=== PATIENT | male | born 1995 | race Two or more races ===

== ENCOUNTER 2016-07-24 10:30 | Day surgery (SDC) | payer OTHER ==
[~2016-07-24 10:30] MED LIST: CEFAZOLIN SODIUM 1,000 MG VIAL ONE
[2016-07-24] MEDS ORDERED: LACTATED RINGERS 1,000 ML ONE ×2 (10:40→13:33)
[2016-07-24] MEDS ORDERED: IV START KIT ONE (10:41)
[2016-07-24] MEDS ORDERED: CEFAZOLIN SODIUM 2 GRAM PREMIX 100 ML IV PRN (10:45)
[2016-07-24] MEDS ORDERED: CEFAZOLIN SODIUM 2 GRAM DUPLEX 2 G in Premix (D5W) 50 ml 1 EACH IV PRN (10:48)
[2016-07-24] MEDS ORDERED: CEFAZOLIN SODIUM 2 GRAM PREMIX 100 ML IV ONE (10:48)
[2016-07-24] MEDS ORDERED: LACTATED RINGERS 1,000 ML IV SCH ×2 (10:48→15:45)
[2016-07-24] MEDS ORDERED: LIDOCAINE 1% 2 ML VIAL ID PRN (10:48)
[2016-07-24] MEDS ORDERED: MIDAZOLAM HCL 1 MG/ML 2ML VIAL ONE (13:22)
[2016-07-24] MEDS ORDERED: FENTANYL 5 ML ONE (13:22)
[2016-07-24] MEDS ORDERED: ROCURONIUM BROMIDE 10 MG/ML DOSE IV ONE (13:22)
[2016-07-24] MEDS ORDERED: CEFOTAXIME SODIUM 1,000 MG VIAL ONE (13:29)
[2016-07-24] MEDS ORDERED: BUPIVACAINE 0.5% W/EPI SDV 30 ML VIAL ONE (13:29)
[2016-07-24] MEDS ORDERED: SODIUM CHLORIDE 0.9% FLUSH 10 ML ONE (13:29)
[2016-07-24] MEDS ORDERED: KETAMINE HCL UD SYRINGE 100 MG/2 ML IV ONE (13:58)
[2016-07-24] MEDS ORDERED: METHYLENE BLUE 1% 1ML VIAL ONE (14:22)
[2016-07-24] MEDS ORDERED: ONDANSETRON 4 MG/2ML 2 ML VIAL ONE (14:30)
[2016-07-24] MEDS ORDERED: DEXAMETHASONE SOD PHOS 4 MG/1 ML VIAL ONE (14:30)
[2016-07-24] MEDS ORDERED: PROPOFOL 20 ML IV ONE ×2 (14:30→14:57)
[2016-07-24] MEDS ORDERED: MORPHINE SULFATE 10 MG/ML SYRINGE ONE (14:58)
[2016-07-24] MEDS ORDERED: PROMETHAZINE HCL 25 MG/ML VIAL IM PRN (15:39)
[2016-07-24] MEDS ORDERED: MORPHINE SULFATE 4 MG/ML SYRINGE IV PRN ×2 (15:39→16:23)
[2016-07-24] MEDS ORDERED: FENTANYL 100 MCG/2 ML VIAL IV PRN (15:39)
[2016-07-24] MEDS ORDERED: ONDANSETRON 4 MG/2ML 2 ML VIAL IV PRN ×2 (15:39→16:19)
[2016-07-24] MEDS ORDERED: KETOROLAC TROMETHAMINE 30 MG/ML 1 ML VIAL IV PRN (16:19)
[2016-07-24] MEDS ORDERED: MORPHINE SULFATE 2 MG/ML SYRINGE IV PRN (16:19)
[2016-07-24] MEDS ORDERED: OXYCODONE/ACETAMINOPHEN 5/325 MG TABLET PO PRN (16:19)
[2016-07-24] MEDS ORDERED: MORPHINE SULFATE 10 MG/ML SYRINGE IV PRN (16:23)
[2016-07-24] MEDS ORDERED: OXYCODONE/ACETAMINOPHEN 5/325 MG TABLET ONE (17:43)
--- NOTE | 2016-07-25 10:02 | OP ---
MEGAN HIGGINS [id number] DATE OF OPERATION: July 24, 2016 PREOPERATIVE DIAGNOSIS: Pilonidal cyst with chronic abscess. POSTOPERATIVE DIAGNOSIS: Pilonidal cyst with chronic abscess. PROCEDURE: COMPLEX EXCISION OF PILONIDAL CYST WITH CLEFT LIFT FLAP CLOSURE. SURGEON: Vitor Lopez M.D. VOICE AND DATA TECHNICIAN: Sonido Cox ANESTHESIA: Jonathan Madera C.R.N.A., general endotracheal. INDICATIONS: This is a 21-year-old male who has a chronic pilonidal cyst that has a long tract between the pits and a chronic abscess. He presents for elective resection. DESCRIPTION: With informed consent he was taken to the operating room where he was laid supine. General endotracheal anesthetic was administered. He was then placed in a prone position. Extensive hair over the buttocks was clipped. The buttocks were taped apart. The area was prepped and draped in a sterile fashion. Some Marcaine with epinephrine was infiltrated in the skin and subcutaneous tissues around the pilonidal cyst. We planned to lift the cleft and advance a flap from left to right. This was drawn on the skin. I injected the pits with some methylene blue and they connected to the chronic abscess more cephalad. An incision was made on the left side of the cystic lesion extending from below the pits to above the chronic abscess. I dissected down the presacral fascia making sure that I included any blue dye. I then made an incision extending out on the perianal skin on the patient's right buttock. I excised the skin and dermis over the medial right buttock until medially I then dissected down to the presacral fascia on the right side of the pits and cyst. With that, I excised a specimen and handed that off to pathology. Made sure that there were no additional chronic inflammatory tracts or blue dye. I elevated a skin flap on the left side at least 6 cm lateral. I released the tape from the buttocks. There was a paucity of fat at the superior aspect where the chronic abscess had been. I did mobilize as much of the subcutaneous fat on the right and left side to be able to bring that together in the midline. The defect to be covered by the flap measured 16 x 5 cm. The deeper gluteal fat was reapproximated in the midline with interrupted #2-0 Vicryl. I placed a #7 flat Erasto-Orellana drain on top of that actually through a stab incision on the left buttock. I then advanced the flap across the midline. The deeper aspects of the flap were reapproximated with some interrupted #2-0 and #3-0 Vicryl. I did have to make a vertical incision on the advancing flap at the superior aspect to bring it together with the right side. This in effect created a Z-plasty at the upper aspect. The skin was reapproximated with a running #3-0 PDS with multiple runs and sutures. I then placed some interrupted #3-0 nylon on the outside for additional support. The result was elevation of the cleft with a deviation of the cleft to the patient's right of about 3 cm. The drain was sutured to the skin with a #2-0 nylon and placed to bulb suction. Bulky dressings were applied. He was turned supine and extubated and taken to the recovery room in stable condition. Note was made that needle, instrument and lap counts were reported as correct at time of closure. Cc: Jerry Burnett M.D.
--- NOTE | 2016-07-27 13:29 | SURGPATH ---
[facility] [address] [place] [id number] Patient Name: MEGAN HIGGINS MR#: [id number] : 1995 Gender: M Specimen #: [id number] Collected: 07/24/2016 Received: 07/26/2016 Reported: 07/27/2016 Submitting Phys: HONEY PRICE Copy [facility] Clinical History / Pre-Operative Diagnosis: PILONIDAL CYST WITH ABSCESS Specimen Source / Surgical Procedure Performed: PILONIDAL CYST WITH ABSCESS Interpretation: PILONIDAL CYST, EXCISION: - PILONIDAL CYST WITH ASSOCIATED MARKED CHRONIC INFLAMMATION. - NO EVIDENCE OF MALIGNANCY. Electronically Signed Out Anupam Alberts M.D., Ph.D. Gross Description: The specimen is received in a formalin filled container labeled with the patient's name and "pilonidal cyst with abscess". An irregular excision of dark parks skin is 11.5 x 2.5 x 2 cm. There is a 3 cm crevice near one margin at one end. The opposite end is a 0.7 x 0.6 cm raised bradford lesion. The specimen is multiply sectioned to reveal an 8 cm soft, parks cystic tract. Two customer service representative teller cross sections are submitted in one cassette. Raoul Kirk, P.A. Microscopic Description: Examination of multiple sections from the pilonidal cyst shows skin overlying dermal fibrosis, granulation tissue, a marked chronic inflammatory cell infiltrate, squamous epithelial cells, and multiple hair shafts. There is no evidence of malignancy. 1: [id number] L05.01
== END 2016-07-24 18:24 | disposition home or self-care (01) ==
LOC: SDC 10:30
PROVIDERS: ATTEND Surgery
PROC: 0JB90ZZ Excision of Buttock Subcutaneous Tissue and Fascia, Open Approach (ICD-10-PCS; principal; 2016-07-24)
PROC: 0HX8XZZ Transfer Buttock Skin, External Approach (ICD-10-PCS; 2016-07-24)
DX: L05.01 Pilonidal cyst with abscess (principal)
CPT/HCPCS: 11772; J0698; J3010; J1100; J2270; A9270; J2250; J2405; J7120 ×2; J0690